=== PATIENT | male | born 1965 | race African-American/Black ===

== ENCOUNTER 2019-06-09 10:41 | Emergency (ER) | payer OTHER ==
[~2019-06-09] VITALS: Ht 172.7 cm; Wt 106.0 kg
[2019-06-09] MEDS ORDERED: ASPIRIN 81MG TABLET PO ONE (11:30)
[2019-06-09 11:57] LABS: BASOPHILS % 1.1 % (0.0-2.0); EOSINOPHILS % 0.7 % (0.0-5.0); HEMATOCRIT. 45.2 % (42.0-52.0); HEMOGLOBIN. 15.3 g/dL (14.0-18.0); LYMPHOCYTES % 29.6 % (20.0-50.0); MEAN CORPUSCULAR VOLUME 88.8 fL (80.0-94.0); MEAN PLATELET VOLUME 8.6 fl (7.4-10.4); NEUTROPHILS % 59.6 % (40.0-76.0); PLATELET 218 x1000/uL (130-400); RED BLOOD CELL COUNT 5.09 mill/uL (4.7-6.1); RED CELL DISTRIBUTION WIDTH 13.7 % (11.6-14.6)
[2019-06-09 12:06] LABS: CHLORIDE 109 mEq/L (98-107)
[2019-06-09 13:30] VITALS: BP 135/85
== END 2019-06-09 13:32 | disposition home or self-care (01) ==
LOC: ER 10:41
DX: R07.89 Other chest pain (principal); F43.9 Reaction to severe stress, unspecified
CPT/HCPCS: 36415; 71045; 80053; 83880; 84484; 85025; 93005; 99285; Z7610

== ENCOUNTER 2019-08-09 12:43 | Emergency (ER) | payer OTHER ==
[~2019-08-09] VITALS: Ht 177.8 cm; Wt 109.0 kg
[2019-08-09] MEDS ORDERED: CLONIDINE 0.2MG TABLET PO ONE (14:30)
[2019-08-09 17:05] LABS: BASOPHILS % 0.9 % (0.0-2.0); EOSINOPHILS % 0.2 % (0.0-5.0); HEMATOCRIT. 45.5 % (42.0-52.0); HEMOGLOBIN. 15.3 g/dL (14.0-18.0); LYMPHOCYTES % 24.3 % (20.0-50.0); MEAN CORPUSCULAR HEMOGLOBIN 29.8 pg (28.0-32.0); MEAN CORPUSCULAR VOLUME 88.6 fL (80.0-94.0); MEAN PLATELET VOLUME 8.7 fl (7.4-10.4); MONOCYTES % 7.8 % (2.0-8.0); NEUTROPHILS % 66.8 % (40.0-76.0); PLATELET 201 x1000/uL (130-400); RED BLOOD CELL COUNT 5.13 mill/uL (4.7-6.1); RED CELL DISTRIBUTION WIDTH 14.9 % (11.6-14.6)
[2019-08-09 17:43] LABS: CHLORIDE 105 mEq/L (98-107)
[2019-08-09 19:00] VITALS: BP 158/97
== END 2019-08-09 19:36 | disposition home or self-care (01) ==
LOC: ER 13:00
DX: R06.02 Shortness of breath (principal); I10 Essential (primary) hypertension; Z98.890 Other specified postprocedural states
CPT/HCPCS: 36415; 71045; 80053; 83880; 84484; 85025; 93005; 99285